=== PATIENT | female | born 1955 | race Caucasian/White ===

== ENCOUNTER → 2019-12-16 09:00 | Outpatient (BNVA) | payer OTHER, SELFPAY | PROVIDERS: Family Provider Nurse Practitioner Family; PCP Nurse Practitioner Family; Visit Provider Nurse Practitioner Family | DX: E03.9 Hypothyroidism, unspecified (principal); Z00.00 Encounter for general adult medical examination without abnormal findings | CPT/HCPCS: 80053; 80061; 84439; 84443 ==

== ENCOUNTER → 2020-12-25 09:34 | Outpatient (BNVA) | payer OTHER, SELFPAY | PROVIDERS: Family Provider Nurse Practitioner Family; PCP Nurse Practitioner Family; Visit Provider Nurse Practitioner Family | DX: E03.9 Hypothyroidism, unspecified (principal) | CPT/HCPCS: 80053; 80061; 84439; 84443 ==

== ENCOUNTER → 2021-12-19 09:52 | Outpatient (BNVA) | payer MEDICARE, SELFPAY | PROVIDERS: Family Provider Nurse Practitioner Family; PCP Nurse Practitioner Family; Visit Provider Nurse Practitioner Family | DX: E03.9 Hypothyroidism, unspecified (principal) | CPT/HCPCS: 80053; 80061; 84443 ==

== ENCOUNTER → 2022-01-22 13:53 | Outpatient (BNVA) | payer MEDICARE, SELFPAY | PROVIDERS: Family Provider Nurse Practitioner Family; PCP Nurse Practitioner Family; Visit Provider Nurse Practitioner Family | DX: R30.0 Dysuria (principal); R10.9 Unspecified abdominal pain; R11.0 Nausea | CPT/HCPCS: 81000; 81003 ==

== ENCOUNTER → 2022-12-25 15:45 | Outpatient (BNVA) | payer MEDICARE, SELFPAY | PROVIDERS: Family Provider Nurse Practitioner Family; PCP Nurse Practitioner Family; Visit Provider Nurse Practitioner Family | DX: E03.9 Hypothyroidism, unspecified (principal); E55.9 Vitamin D deficiency, unspecified; E56.9 Vitamin deficiency, unspecified; Z12.31 Encounter for screening mammogram for malignant neoplasm of breast | CPT/HCPCS: 80053; 80061; 82306; 82607; 84443 ==

== ENCOUNTER → 2023-12-25 09:00 | Outpatient (BNVA) | payer MEDICARE, SELFPAY | PROVIDERS: Family Provider Nurse Practitioner Family; PCP Nurse Practitioner Family; Visit Provider Nurse Practitioner Family | DX: E03.9 Hypothyroidism, unspecified (principal) | CPT/HCPCS: 80053; 80061; 84443 ==

== ENCOUNTER → 2025-01-18 11:20 | Outpatient (BNVA) | payer MEDICARE, SELFPAY | PROVIDERS: Family Provider Nurse Practitioner Family; PCP Nurse Practitioner Family; Visit Provider Nurse Practitioner Family | DX: E03.9 Hypothyroidism, unspecified (principal); E55.9 Vitamin D deficiency, unspecified | CPT/HCPCS: 80053; 80061; 82306; 84443 ==